=== PATIENT | male | born 1955 | race African-American/Black ===

== ENCOUNTER 2017-06-27 08:12 | Emergency (ER) | payer OTHER ==
[2017-06-27] VITALS (7 sets, daily range): BP systolic 123–139; BP diastolic 65–89
[~2017-06-27] VITALS: Ht 190.5 cm; Wt 67.0 kg
[2017-06-27] MEDS ORDERED: HYDROCODONE/ACETAMINOPHEN 5/325MG TABLET PO ONE (10:30)
[2017-06-27 10:47] LABS: BASOPHILS % 1.4 % (0.0-2.0); EOSINOPHILS % 0.7 % (0.0-5.0); LYMPHOCYTES % 15.9 % (20.0-50.0); MEAN CORPUSCULAR HEMOGLOBIN 28.2 pg (28.0-32.0); MEAN CORPUSCULAR VOLUME 87.9 fL (80.0-94.0); MEAN PLATELET VOLUME 6.2 fl (7.4-10.4); MONOCYTES % 6.1 % (2.0-8.0); NEUTROPHILS % 75.9 % (40.0-76.0); PLATELET 585 x1000/uL (130-400); RED BLOOD CELL COUNT 2.85 mill/uL (4.7-6.1); RED CELL DISTRIBUTION WIDTH 16.7 % (11.6-14.6)
[2017-06-27 11:01] LABS: CARBON DIOXIDE 30 mEq/L (21-32); CHLORIDE 100 mEq/L (98-107)
[2017-06-27 11:02] LABS: INR 1.2; PARTIAL THROMBOPLASTIN TIME 34.6 sec (23.4-31.0); PROTHROMBIN TIME 12.9 sec (9.4-11.6)
[2017-06-27] MEDS ORDERED: SODIUM BICARBONATE 4% (2.4MEQ) 5ML VIAL IV ONE (13:17)
[2017-06-27] MEDS ORDERED: LIDOCAINE HCL 1% 20ML VIAL (Pyxis) INJ ONE (13:17)
[2017-06-27] MEDS ORDERED: FENTANYL CITRATE/PF 50MCG/ML 2ML VIAL ONE (13:38)
[2017-06-27] MEDS ORDERED: CEFAZOLIN 1000MG PREMIX 50 ML IV ONE ×2 (13:38→14:30)
[2017-06-27] MEDS ORDERED: CEFAZOLIN 1000MG PREMIX 50 ML IV NR (14:30)
[2017-06-27] MEDS ORDERED: FENTANYL CITRATE/PF 50MCG/ML 2ML VIAL IV ONE (14:30)
[2017-08-27] MEDS ORDERED: VITA100T PO (13:10)
[2017-08-27] MEDS ORDERED: ASPI-867 PO (13:10)
[2017-08-27] MEDS ORDERED: METO50TA5 PO (13:10)
[2017-08-27] MEDS ORDERED: AMLO10TA80 PO (13:10)
[2017-08-27] MEDS ORDERED: HYDR-4094 MT (13:10)
[2017-08-27] MEDS ORDERED: FOLI-43 PO (13:10)
== END 2017-06-27 14:49 | disposition home or self-care (01) ==
LOC: EDBEDREQ 11:27 → ER 11:46 → CANRESERV 20:52 → ENRESERV 20:52
DX: T82.41XA Breakdown (mechanical) of vascular dialysis catheter, initial encounter (principal); I12.0 Hypertensive chronic kidney disease with stage 5 chronic kidney disease or end stage renal disease; N18.6 End stage renal disease; Z99.2 Dependence on renal dialysis
CPT/HCPCS: 36415; 36558; 71010; 76937; 77001; 80053; 85025; 85610; 85730; 86850; 86900; 86901; 93005; 96374; 99285; C1750; J0690; J1642; J3010; J3490; J7050; Z7610; 96365; 96375